=== PATIENT | female | born 1945 | race Hispanic/Latino ===

== ENCOUNTER → 2017-11-07 | Day surgery (SDC) | payer MEDICARE ==
[~2017-11-07] MED LIST: Lidocaine 1% PF 5 ML VIAL ONE; Sodium Bicarbonate 2.5 MEQ/5 ML VIAL ONE
--- NOTE | 2017-11-07 12:19 | ULT ---
THYROID ULTRASOUND: Date: 11/07/17 COMPARISON: None. HISTORY: Neck mass. TECHNIQUE: Multiplanar Leon scale sonographic imaging of the thyroid gland obtained. FINDINGS: The patient presented for a thyroid biopsy. This was based per the patient on an abnormal report from a chest CT. That CT examination is not available for review and the report is not provided. The orde r does not state which side the thyroid nodule is located. A full thyroid ultrasound is performed, wh ich demonstrates no discrete measureable nodule. Thyroid parenchyma is diffusely heterogeneous, with the isthmus measuring 3.0 mm in AP dimension, the right lobe measuring 1.6 x 4.3 x 1.3 cm and the lef t lobe measuring 1.2 x 3.2 x 1.5 cm. IMPRESSION: Heterogeneous thyroid parenchyma with no discrete nodule seen. Thus, no biopsy was performed. The CT examination could be reviewed if made available. POS: [facility]
== END ==
LOC: ULT 10:03
PROVIDERS: ATTEND Otolaryngology Plastic Surgery within the Head & Neck
DX: R22.1 Localized swelling, mass and lump, neck (principal); Z79.1 Long term (current) use of non-steroidal anti-inflammatories (NSAID)
CPT/HCPCS: 76536; J2001

== ENCOUNTER 2019-07-23 13:30 | Outpatient (CLI) | payer MEDICARE ==
--- NOTE | 2019-07-23 13:59 | RAD ---
TWO VIEWS OF THE LUMBOSACRAL SPINE: 07/23/19 INDICATION: Acute low back pain. FINDINGS: There is mild multilevel disc degenerative and facet osteoarthritic changes. There is grade I anterol isthesis of L5 on S1. Vertebral body heights are preserved. Vascular calcification is seen involving the abdominal aorta. SI joints are normal appearing. IMPRESSION: 1. Mild lumbar spondylosis. 2. Grade I anterolisthesis of L5 on S1. POS: [facility]
--- NOTE | 2019-07-23 14:00 | RAD ---
THREE VIEWS OF THE SACRUM AND COCCYX: 07/23/19 INDICATION: History of pain and prior injury. COMPARISON: None. FINDINGS: No acute fracture or subluxation is evident. There is scattered vascular calcifications. There is dif fuse osteopenia. IMPRESSION: No acute osseous abnormality. POS: [facility]
== END 2019-07-23 13:31 | disposition home or self-care (01) ==
LOC: BICRAD 13:30
PROVIDERS: ATTEND Physician Assistant
DX: M54.9 Dorsalgia, unspecified (principal); M47.816 Spondylosis without myelopathy or radiculopathy, lumbar region; M43.17 Spondylolisthesis, lumbosacral region
CPT/HCPCS: 72100; 72220